=== PATIENT | female | born 1960 | race Caucasian/White ===

== ENCOUNTER 2024-01-13 09:36 | Outpatient (CLI) | payer MEDICARE, MEDICAID, SELFPAY ==
--- NOTE | ~2024-01-13 | MR_ITS ---
EXAMINATION: MR shoulder LT wo con DATE: 01/13/2024 10:06 INDICATION: Left shoulder pain TECHNIQUE: Magnetic resonance imaging (MRI) of the left shoulder was performed without intravenous co ntrast. Sequences included axial PD-weighted FS FSE, coronal oblique PD-weighted FS FSE, coronal obli que T2-weighted FS FSE, sagittal PD-weighted FS FSE, and sagittal T1-weighted SE. COMPARISON: None. FINDINGS: Coracoacromial arch: The acromion undersurface is curved in morphology (type II). The coracoacromial ligament is normal. M ild acromioclavicular osteoarthritis. Rotator cuff: Moderate supraspinatus tendinopathy with bursal sided fraying along the superior facet footplate but without a well-defined measurable tear defect. The infraspinatus tendinopathy without tear. The teres minor and subscapularis tendons are normal. Normal rotator cuff muscle bulk and signal. Biceps tendon, glenoid labrum and glenohumeral cartilage: Mild tendinopathy and longitudinal split tearing of the long head biceps tendon. Small tear at the 12 :00 position of the superior glenoid labrum.Mild partial-thickness cartilage loss with smooth chondra l surface and without degenerative subchondral changes along the posterior margin of the humeral head . Remaining articular cartilage is normal. Fluid: There is increased fluid in the long head biceps tendon sheath which is disproportionate to the physi ologic amount fluid in the glenohumeral joint space consistent with mild bicipital tenosynovitis. No loose osteochondral bodies. Small amount of fluid in the subacromial/subdeltoid bursa consistent with mild bursitis. Bones: Normal marrow signal with no fracture or pathologic marrow replacing process. IMPRESSION: 1. Moderate supraspinatus tendinopathy with fraying along the bursal side of the distal tendon but wi thout a discrete measurable tear defect. 2. Bicipital tenosynovitis with mild tendinopathy and longitudinal split tearing of the long head bic eps tendon. 3. Minimal glenohumeral osteoarthritis with small tear at the superior glenoid labrum. 4. Mild acromioclavicular osteoarthritis with mild underlying subacromial/subdeltoid bursitis. Reviewed, dictated and finalized at location A. IMPRESSION: 1. Moderate supraspinatus tendinopathy with fraying along the bursal side of th e distal tendon but without a discrete measurable tear defect. 2. Bicipital tenosynovitis with mild tendinopathy and longitudinal split tearin g of the long head biceps tendon. 3. Minimal glenohumeral osteoarthritis with small tear at the superior glenoid labrum. 4. Mild acromioclavicular osteoarthritis with mild underlying subacromial/subde ltoid bursitis.
== END 2024-01-13 09:37 ==
LOC: MICIMG 09:37
PROVIDERS: PCP Physician Assistant; Visit Provider Physician Assistant
DX: M19.012 Primary osteoarthritis, left shoulder (principal); M75.22 Bicipital tendinitis, left shoulder
CPT/HCPCS: 73221